=== PATIENT | female | born 2000 | race Caucasian/White ===

== ENCOUNTER 2020-11-19 11:07 | Emergency (ER) | payer OTHER ==
[~2020-11-19] VITALS: Ht 172.7 cm; Wt 82.0 kg
[2020-11-19 11:45] VITALS: BP 121/72
[2020-11-19] MEDS ORDERED: ACETAMINOPHEN 325 MG TABLET. PO ONE (12:30)
[2020-11-19] MEDS ORDERED: IBUPROFEN 200 MG TABLET. PO ONE (12:30)
--- NOTE | 2020-11-19 13:11 | RAD ---
Left elbow 3 views: Reason for examination: Fell with blunt trauma. No acute fracture or dislocation is seen. The bone density is normal. Joint spaces are maintained. No joint effusion is evident. IMPRESSION: No acute abnormality evident at the left elbow. Electronically signed by: Rosalina Polanco MD (11/19/2020 1:08 PM) [id number]
--- NOTE | 2020-11-19 13:29 | PHYS DOC ---
Past Medical History Additional Past Medical Histor: Psoriasis (YRIS SERRATO APRN) Past Surgical History: No Surgical History (YRIS SERRATO APRN) General Adult EDM: Chief Complaint: ELBOW PROBLEM HPI: HPI: Patient is a 20 year old female who presents to the emergency department complaining of left elbow pain after a slip and fall at work just prior to arrival. Patient reports there was some water on the floor in which she slipped and fell directly onto her left elbow. Patient denies injuring any other part of her body. Patient currently rates her pain at a 4 out of 10 when not moving, rates a 6 out of 10 if she moves her elbow on the right, and an 8 out of 10 if someone touches her elbow. Patient denies numbness or tingling distally to her injury. Patient denies any other physical, planes or physical concerns. Patient reports her last menstrual cycle was in October 2020, states she uses the Nexplanon implant for control along with barrier protection sex. Patient denies taking any medications for the pain prior to arrival, patient denies using any nonpharmacological pain relief methods prior to arrival to the ER today. (YRIS SERRATO APRN) Review of Systems: Review of Systems: 14 body systems of review of systems have been reviewed. See HPI for pertinent positives and negative responses, otherwise all other systems are negative, nonpertinent or noncontributory. Constitutional: Negative except as outlined in HPI above. Skin: Negative except as outlined in HPI above. Eyes: Negative except as outlined in HPI above. HENT: Negative except as outlined in HPI above. Respiratory: Negative except as outlined in HPI above. Cardiovascular: Negative except as outlined in HPI above. GI: Negative except as outlined in HPI above. : Negative except as outlined in HPI above. Musculoskeletal: Negative except as outlined in HPI above. Integument: Negative except as outlined in HPI above. Neurologic: Negative except as outlined in HPI above. Endocrine: Negative except as outlined in HPI above. Lymphatic: Negative except as outlined in HPI above. Psychiatric: Negative except as outlined in HPI above. (YRIS SERRATO APRN) Heart Score: C/O Chest Pain: No Risk Factors: Risk Factors: DM, Current or recent (<one month) smoker, HTN, HLP, family history of CAD, obesity. Risk Scores: Score 0 - 3: 2.5% MACE over next 6 weeks - Discharge Home Score 4 - 6: 20.3% MACE over next 6 weeks - Admit for Clinical Observation Score 7 - 10: 72.7% MACE over next 6 weeks - Early Invasive Strategies (YRIS SERRATO APRN) Current Medications: Current Medications Medications (Trade) Dose Ordered Sig/Toni Start Time Stop Time Status Last Admin Dose Admin Acetaminophen (Tylenol) 650 mg 1X ONCE 11/19/20 12:30 11/19/20 12:36 DC 11/19/20 12:53 650 MG Ibuprofen (Motrin) 600 mg 1X ONCE 11/19/20 12:30 11/19/20 12:42 DC 11/19/20 12:52 600 MG (YRIS SERRATO APRN) Allergies: Allergies: Allergies Coded Allergies Type Severity Reaction Last Updated Verified No Known Drug Allergies 11/19/20 No (YRIS SERRATO APRN) Physical Exam: PE: Constitutional: Well developed, well nourished, no acute distress, non-toxic appearance. 20-year-old female in no apparent distress. HENT: Normocephalic, atraumatic. Eyes: Conjunctiva normal, no discharge. Neck: Normal range of motion, no stridor. Cardiovascular: No cyanosis appreciated, distal cap refill less than 2 seconds. Lungs & Thorax: Patient is in no respiratory distress, no audible adventitious lung sounds appreciated. Abdomen: Nontender, no abnormalities noted. Skin: Warm, dry, no erythema, no rash. Back: No tenderness, no deformities. Extremities: No tenderness, no cyanosis, no clubbing, ROM intact, no edema. Except for left elbow. Pain to palpation along olecranon process, minimal passive range of motion related to pain, no deformity appreciated, no crepitus appreciated, no swelling or skin discoloration, skin is intact. Full AROM/PROM of distal joints and proximal joints, 2+ radial and brachial pulse appreciated. Still cap refills less than 2 seconds. Neurologic: Alert and oriented X 3, normal motor function, normal sensory function, no focal deficits noted. Psychologic: Affect normal, judgement normal, mood normal. (YRIS SERRATO APRN) Current Patient Data: Labs: Laboratory Tests Test 11/19/20 12:40 POC Urine HCG, Qualitative Hcg negative (Negative) Vital Signs: Vital Signs Date Time Temp Pulse Resp B/P (MAP) Pulse Ox O2 Delivery O2 Flow Rate FiO2 11/19/20 11:45 98.7 71 14 121/72 99 Room Air 98.7 (YRIS SERRATO APRN) EKG: EKG: [] (YRIS SERRATO APRN) Radiology/Procedures: Radiology/Procedures: PATIENT: HEMANT MORRISCOUNT: [id number] : 2000 LOCATION: ER AGE: 20 SEX: F EXAM STATUS: REG ER ORD. PHYSICIAN: YRIS SERRATO APRN REASON: fall, blunt trauma PROCEDURE: ELBOW LEFT 3V Left elbow 3 views: Reason for examination: Fell with blunt trauma. No acute fracture or dislocation is seen. The bone density is normal. Joint spaces are maintained. No joint effusion is evident. IMPRESSION: No acute abnormality evident at the left elbow. Electronically signed by: Rosalina Polanco MD (11/19/2020 1:08 PM) [id number] (YRIS SERRATO APRN) Course & Med Decision Making: Course & Med Decision Making Pertinent Labs and Imaging studies reviewed. (See chart for details) 20-year-old female, vital signs reviewed, presents to the emergency department concerning left elbow pain after a slip and fall at work today. Physical examination consistent with patient's explanation of events and physical presentation, an x-ray was ordered. P.o. pain medication ordered. X-ray interpreted by house radiologist negative for acute fracture. Will order Deejay wrap, shoulder immobilizer for discomfort. Discussed at length with patient RICE therapy, ice packs 30 minutes on 30 minutes off while awake for the next 48 to 72 hours, limited sling use, follow-up with primary care or work comp this week for ongoing elbow pain, home [id number] pain medication use. Patient gave verbal understanding of and agrees with ED discharge planning. Discussed with the patient all findings and diagnostic testing as well as the need to follow-up with their primary care provider for further evaluation and treatment or return to the ED if any new or worsening symptoms. Strict return precautions were also discussed at length, the patient voiced understanding and agreement with the discharge planning. The patient was nontoxic in appearance, in no apparent distress, and hemodynamically stable at the time of disposition. (YRIS SERRATO APRN) Course & Med Decision Making I have participated in the care of this patient and I have reviewed and agree with all pertinent clinical information above including history, exam, and recommendations. Keisha Thurston DO (KEISHA THURSTON DO) Isai Disclaimer: Isai Disclaimer: This electronic medical record was generated, in whole or in part, using a voice recognition dictation system. (YRIS SERRATO APRN) Departure Departure Impression: Primary Impression: Left elbow contusion Qualified Codes: S50.02XA - Contusion of left elbow, initial encounter Disposition: HOME / SELF CARE / HOMELESS Condition: GOOD Referrals: ARMEN WALLER (PCP) Patient Instructions: Elastic Bandage and RICE, Elbow Contusion Additional Instructions: You were seen today in the emergency department for pain to your left elbow after a slip and fall at work. An x-ray was performed and was reassuring and that there was no fracture/broken bone noted on the x-ray as interpreted by our house radiologist. You were given pain medication today in the emergency department, please use ice packs 30 minutes on 30 minutes off while awake, follow RICE therapy, rest, ice, compression, elevation. You may use a shoulder sling for discomfort but this is not necessary. I am providing you with a work excuse, however if you feel you can return to work or do light duty this is f ine. Please follow-up with your work comp physician or primary care physician for ongoing pain management and evaluation of your left elbow pain. Thank you for visiting our Emergency Department. It was a pleasure taking care of you today in the emergency department and we appreciate you trusting us with your care. If any additional problems come up don't hesitate to return to visit us. Please follow up with your primary care provider so they can plan additional care if needed and know about the problem that you had. If symptoms worsen come back to the Emergency Department. Any concerning symptoms that start such as chest pain, shortness of air, weakness or numbness on one side of the body, running high fevers or any other concerning symptoms return to the ER. EMERGENCY DEPARTMENT GENERAL DISCHARGE INSTRUCTIONS Thank you for coming to [facility] Emergency Department (ED) today and trusting us with you care. We trust that you had a positive experience in our Emergency Department. If you wish to speak to the department management, you may call the Director at [phone]. YOUR FOLLOW UP INSTRUCTIONS ARE FOLLOWS: 1. Do you have a private Doctor? If you do not have a private doctor, please ask for a resource list of physicians or clinics that may be able to assist you with follow up care. 2. The Emergency Physicain has interpreted your x-rays. The X-Ray specialist will also review them. If there is a change in the findings, you will be notified in 48 hours when at all possible. 3. A lab test or culture has been done, your results will be reviewed and you will be notified if you need a change in treatment. ADDITIONAL INSTRUCTIONS AND INFORMATION: 1. Your care today has been supervised by a physician who is specially trained in emergency care. Many problems require more than one evaluation for a complete diagnosis and treatment. We recommend that you schedule your follow up appointment as recommended to ensure complete treatment of you illness or injury. If you are unable to obtain follow up care and continue to have a problem, or if your condition worsens, we recommend that you return to the ED. 2. We are not able to safely determine your condition over the phone nor are we able to give sound medical advice over the phone. For these safety reasons, if you call for medical advice we will ask you to come to the ED for further evaluation. 3. If you have any questions regarding these discharge instructions please call the ED at [phone]. SAFETY INFORMATION: In the interest of safety, wellness, and injury prevention; we encourage you to wear your sealbelt, if you smoke; quite smoking, and we encourage family to use a protective helmet for bicycling and other sporting events that present an increased risk for head injury. IF YOUR SYMPTOMS WORSEN OR NEW SYMPTOMS DEVELOP, OR YOU HAVE CONCERNS ABOUT YOUR CONDITION; OR IF YOUR CONDITION WORSENS WHILE YOU ARE WAITING FOR YOUR FOLLOW UP APPOINTMENT; EITHER CONTACT YOUR PRIMARY CARE DOCTOR, THE PHYSICIAN WHOSE NAME AND NUMBER YOU WERE GIVEN, OR RETURN TO THE ED IMMEDIATELY. YRIS SERRATO APRN Nov 19, 2020 13:29 KEISHA THURSTON DO Nov 19, 2020 17:08
== END 2020-11-19 13:45 | disposition home or self-care (01) ==
LOC: ER 11:07
DX: S50.02XA Contusion of left elbow, initial encounter (principal); W01.0XXA Fall on same level from slipping, tripping and stumbling without subsequent striking against object, initial encounter; Y93.89 Activity, other specified; Y92.89 Other specified places as the place of occurrence of the external cause; Y99.8 Other external cause status
CPT/HCPCS: 73080; 81025; 99283